=== PATIENT | male | born 1990 | race Two or more races ===

== ENCOUNTER 2018-09-05 13:30 | Outpatient (CLI) | payer SELFPAY | END 2018-09-05 23:59 | disposition home or self-care (01) | LOC: WOU 13:30 | PROVIDERS: ATTEND Surgery | DX: S49.91XD Unspecified injury of right shoulder and upper arm, subsequent encounter (principal); W26.8XXD Contact with other sharp object(s), not elsewhere classified, subsequent encounter; Y92.89 Other specified places as the place of occurrence of the external cause | CPT/HCPCS: G0463; Z7610 ==